=== PATIENT | female | born 1990 | race Two or more races ===

== ENCOUNTER → 2024-02-13 13:20 | Outpatient (REF) | payer OTHER, SELFPAY | LOC: PNTC 13:20 | PROVIDERS: ATTENDING PHYSICIAN Obstetrics & Gynecology | DX: Z34.82 Encounter for supervision of other normal pregnancy, second trimester (principal); O34.211 Maternal care for low transverse scar from previous cesarean delivery | CPT/HCPCS: 76811; 93976 ==

== ENCOUNTER 2024-06-25 06:44 | Inpatient (IN) | payer OTHER, SELFPAY ==
[2024-06-25] MEDS: LR 1000 IV ×2 (07:15→08:29)
[2024-06-25 07:40] LABS: Hematocrit 34.7 % (37.0-47.0); Hemoglobin 12.3 g/dL (12.0-16.0); Mean Corp Hgb Conc. 35.4 g/dL (33.0-37.0); Mean Corpuscular Hgb 30.8 pg (27.0-31.0); Mean Corpuscular Volume 86.8 fL (81.0-99.0); Mean Platelet Volume 10.4 fL (7.4-10.4); Platelet Count 241 10^3/uL (130-400); Red Cell Dist. Width 13.3 % (11.5-14.5); White Blood Cell Count 8.9 10^3/uL (4.8-10.8)
[2024-06-25] MEDS: BICITRA 30 ML PO (08:04)
[2024-06-25] MEDS: TYLENOL 1000 MG PO (08:04)
[2024-06-25] MEDS: ANCEF 10 IV (08:05)
[2024-06-25 08:09] VITALS: BP 96/59; BMI 27.3
[2024-06-25] MEDS: PITOCIN 30 UNITS/NSS 500 ML IV (10:05)
[2024-06-25] MEDS: BENADRYL 25 MG IV ×2 (11:39→16:23)
[2024-06-25] MEDS: MOTRIN 600 MG PO (16:28)
[2024-06-25] MEDS: SENOKOT-S 1 TABLET PO (16:29)
[2024-06-25] MEDS: TYLENOL 650 MG PO ×2 (16:29→21:12)
[2024-06-26] MEDS: MOTRIN 600 MG PO ×4 (02:18→21:02)
[2024-06-26 04:28] LABS: Hemoglobin 10.7 g/dL (12.0-16.0); Mean Corp Hgb Conc. 34.5 g/dL (33.0-37.0); Mean Corpuscular Hgb 30.3 pg (27.0-31.0); Mean Corpuscular Volume 87.8 fL (81.0-99.0); Mean Platelet Volume 10.5 fL (7.4-10.4); Platelet Count 218 10^3/uL (130-400); Red Blood Cell Count 3.53 10^6/uL (4.20-5.40); Red Cell Dist. Width 13.5 % (11.5-14.5)
[2024-06-26] MEDS: PRENATAL PLUS 1 TABLET PO (07:59)
[2024-06-26] MEDS: SENOKOT-S 1 TABLET PO (08:00)
--- NOTE | 2024-06-26 09:22 | W.PN.ANS.POP ---
Anesthesia Post Operative
- Anesthesia Post Op Note
Vital Signs Stable-See Nursing Note: Yes
Airway Patent: Yes
Adequate Pain Control: Yes
Change in Mental Status: No
Current Postoperative Nausea & Vomiting: No
Anesthesia Complications: No
General Anesthetic Recall: No
Unplanned Admission: No
Post Op Hydration Adequate: Yes
[2024-06-26] MEDS: TYLENOL 650 MG PO ×2 (14:41→21:02)
[2024-06-26 15:16] LABS: Syphilis/T. pallidum Ab Reflex Negative (Negative)
[2024-06-27] MEDS: MOTRIN 600 MG PO ×3 (02:41→17:59)
[2024-06-27] MEDS: TYLENOL 650 MG PO ×2 (02:41→17:59)
[2024-06-27] MEDS: SENOKOT-S 1 TABLET PO (07:58)
[2024-06-27] MEDS: PRENATAL PLUS 1 TABLET PO (07:58)
[2024-06-28] MEDS: MOTRIN 600 MG PO ×2 (00:48→08:42)
[2024-06-28] MEDS: TYLENOL 650 MG PO (00:48)
[2024-06-28] MEDS: PRENATAL PLUS 1 TABLET PO (08:43)
[2024-06-28] MEDS: MYLICON 80 MG PO (08:43)
[2024-06-28] MEDS: SENOKOT-S 1 TABLET PO (08:43)
--- NOTE | 2024-06-28 17:40 | W.DS.TRANS ---
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
-
Discharge Instructions:
Discharge Diagnosis/Procedures delivered via repeat section
Diet No restrictions
Activity No strenuous activity
Driving Restrictions No driving for 2 weeks
Bathing Restrictions OK to Shower
Instructions:
Stand-Alone Forms: [facility] Delivery
Changes to Home Medications: No
Discharge Medications:
DC Medications w/original date entered in [facility]
vitamin-ferrous fumarate 28 mg iron-folic acid 800 mcg tablet ( Tablet) 1 tab PO DAILY 06/25/24
acetaminophen 325 mg tablet 650 mg (2 x 325 mg) PO Q4HPRN PRN mild pain #1 tab 06/28/24
ibuprofen 600 mg tablet 600 mg PO Q6HPRN PRN cramps #60 tabs 06/28/24
sennosides 8.6 mg-docusate sodium 50 mg tablet 1 tab PO DAILYPRN PRN constipation #1 tab 06/28/24
Home Medication Changes
Pending Results: No
--- NOTE | 2024-06-28 17:40 | W.DCSUMMARY ---
Discharge Summary
Discharge Data
Date of Admission: 06/25/24
Date of Discharge: 06/28/24
-
Pending Results: No
Hospital Course
Patient is a 34yo who presented to Labor and Delivery on 06/25 for schedule repeat section. She has a history of one prior section and declined a trial of labor after section. Her type and screen on admission was
positive for Anti-E antibodies. She underwent repeat low transverse section on 06/25. During the procedure clinical oligohydramnios was noted. She was also noted to have endometriotic implants on the posterior lower segment of the uterus.
These endometriotic implants were fulgurated. She qualitative blood loss for the procedure was 480cc. The procedure was uncomplicated. On postoperative day one, her hemoglobin was 10.7 and she was started on iron supplementation. On postoperative
day two, she was doing well with no complaints. On postoperative day three, she was meeting all postoperative milestones. She was ambulating, tolerating a regular diet, voiding spontaneously, passing flatus, and did not have any heavy lochia. She
was stable for discharge home. She was discharged home after discharge instructions and return precautions were discussed and all questions answered. She was instructed to follow up in 2 weeks in the office for an incision check.
Discharge Plan
-
Patient Disposition: Home (Routine Discharge)
Discharge Diagnosis/Procedures: delivered via repeat section
Condition: Good
Diet: No restrictions
Activity: No strenuous activity
Driving Restrictions: No driving for 2 weeks
Bathing Restrictions: OK to Shower
Stand Alone Forms: [facility] Delivery
Referrals:
Elías Stover MD [Active] - in two weeks
UNKNOWN - PT NOT,INTERVIEWE [Family Provider] -
Prescriptions:
New
acetaminophen 325 mg Tablet
650 mg PO Q4HPRN PRN (Reason: mild pain) Qty: 1 0RF
sennosides-docusate sodium 8.6-50 mg Tablet
1 tab PO DAILYPRN PRN (Reason: constipation) Qty: 1 0RF
ibuprofen 600 mg Tablet
600 mg PO Q6HPRN PRN (Reason: cramps) Qty: 60 0RF
Continued
vit-iron fum-folic ac [ Tablet] 28 mg iron- 800 mcg Tablet
1 tab PO DAILY
Discharge Orders:
Discharge Patient (As Directed); Ordered 06/28/24
Ordered By: Saadia Fonseca
Discharge Date and Time
Discharge Date/Time: 06/28/24 13:35
Print Language: [email or web address]
== END 2024-06-28 13:35 | disposition home or self-care (01) | DRG 788 ==
LOC: LDRP 06:44
PROVIDERS: Student in an Organized Health Care Education/Training Program; ADMITTING PHYSICIAN Obstetrics & Gynecology
PROC: 10D00Z1 Extraction of Products of Conception, Low, Open Approach (ICD-10-PCS; 2024-06-25)
DX: O34.211 Maternal care for low transverse scar from previous cesarean delivery (principal); Z3A.39 39 weeks gestation of pregnancy; Z37.0 Single live birth; O99.892 Other specified diseases and conditions complicating childbirth; N80.9 Endometriosis, unspecified
CPT/HCPCS: 88307; 36415; 85027; 86780; 86850; 86870; 86900; 86901; 86920; 86922